=== PATIENT | female | born 1985 | race Caucasian/White ===

== ENCOUNTER 2018-03-29 10:22 | Emergency (ER) | payer OTHER ==
[~2018-03-29] VITALS: Ht 162.6 cm; Wt 90.7 kg
--- NOTE | ~2018-03-29 | EKG ---
[place] [address] [facility] [address] [place] [address] ELECTROCARDIOGRAM REPORT Name: LOPEZSUSAN TORREZ Room #: DEP [facility]#: [id number] Admission: 03/29/18 Attend Phys: Discharge: 03/29/18 Date of : 89 Report #: [id number] THIS REPORT FOR: //name// [facility] ED Test Date: 2018-03-29 Test Time: 10:35:10 Pat Name: SUSAN LOPEZ Department: Room: Gender: F Supervisor Tower: : 1985 Requested By: Jasvir Moreno Order Number: [id number] MD: Dilan Gracia Measurements Intervals [place] Rate: 64 P: -10 TN: 148 QRS: 2 QRSD: 104 T: -8 QT: 428 QTc: 442 Interpretive Statements Sinus rhythm Probable left ventricular hypertrophy Nonspecific T abnormalities, anterior leads Compared to ECG 10/04/2016 03:38:52 T-wave abnormality now present Electronically Signed On 03-29-2018 16:58:35 CDT by Dilan Gracia [email or web address] <ELECTRONICALLY SIGNED> By: Dilan Gracia MD 03/29/18 1658 1035 1035 Dilan Gracia MD /ELENA
[~2018-03-29 10:22] MED LIST: ALPRAZOLAM2 MG PO; AMBIEN 10 MG TA10 MG PO; AMOXICILLI400 MG/5 M PO; BACTRIM DS TAB1 EACH PO; CIPROFLOXACIN500 M1; CIPROFLOXACIN500 M1 PO; FLAGYL500 MG PO; HYDROCODONE-AC120 ML PO; IBUPROFEN 600600 M1 PO; LUPRON; MONISTAT 324 GM VG; NORCO 5-325 TA1 EACH PO; NUVARING VAGIN1 EACH; NUVARING VAGIN1 EACH VG; PHENTERMINE HCL30 MG PO; SERTRALINE HCL50 MG PO; TRINATE TABLET1 TAB PO; TUMS PO; VICODIN 5-5001 EACH PO; XANAX 0.5 MG0.5 M1 PO; ZOFRAN ODT4 MG PO; [UNRECOGNIZED DRUG - OTHER]
[2018-03-29 11:25] LABS: ABSOLUTE NEUTROPHILS 2.3 thou/uL (1.4-8.2); BASOPHILS 1.3 % (0.0-2.0); EOSINOPHILS 2.6 % (0.0-3.0); HEMATOCRIT 36.6 % (37.0-47.0); HEMOGLOBIN 12.1 gm/dL (12.0-15.0); MCH 27.1 pg (26.0-34.0); MCHC 33.2 g/dL (28.0-37.0); MCV 81.6 fL (80.0-100.0); MONOCYTES 9.8 % (1.0-8.0); PLATELET COUNT 415 thou/uL (150-400); POLYS 46.3 % (36.0-66.0); RBC 4.49 mil/uL (4.20-5.00); RDW 15.4 % (10.5-14.5); WBC 4.9 thou/uL (4.0-11.0)
[2018-03-29 11:38] LABS: ANION GAP 4 mmol/L (7-16); BUN 11 mg/dL (7-18); CALCIUM 8.6 mg/dL (8.5-10.1); CHLORIDE 107 mmol/L (98-107); CO2 27 mmol/L (21-32); CREATININE 0.7 mg/dL (0.6-1.0); GLUCOSE 100 mg/dL (74-106); POTASSIUM 3.8 mmol/L (3.5-5.1); SODIUM 138 mmol/L (136-145)
[2018-03-29 11:46] LABS: ALBUMIN 3.7 g/dL (3.4-5.0); SGOT 20 U/L (15-37); SGPT 24 U/L (30-65); TOTAL BILIRUBIN 0.3 mg/dL (<0.1-1.0); TOTAL PROTEIN 7.5 g/dL (6.4-8.2); TROPONIN-I < 0.04 ng/mL (<0.06)
[2018-03-29] MEDS ORDERED: MOBIC7.5 MG PO (11:59)
[2018-03-29] MEDS ORDERED: ATIVAN0.5 MG PO (11:59)
== END 2018-03-29 12:24 | disposition home or self-care (01) ==
LOC: ER 10:22
PROVIDERS: Physician Assistant
DX: R07.9 Chest pain, unspecified (principal); F41.9 Anxiety disorder, unspecified; Z56.3 Stressful work schedule; Z87.440 Personal history of urinary (tract) infections; Z91.040 Latex allergy status; Z91.041 Radiographic dye allergy status